=== PATIENT | female | born 1960 | race Caucasian/White ===

== ENCOUNTER → 2017-10-12 | Outpatient (CLI) | payer OTHER ==
[~2017-10-12] MED LIST: REGADENOSON 0.4 MG/5 ML DISP.SYRIN. IV ONE
--- NOTE | 2017-10-12 12:11 | PCVCIMAG ---
APPROVED REPORT Exam: Nuclear Stress Test Indication: Chest pain Patient Location: Out-Patient Stress Nurse: Francia Juarez RN, Luz Marina Mireles RN RI Tech:Bisi Fuenteshbun [facility] Ht: 5 ft 8 in Wt: 215 lbs BSA: 2.11 m2 HR: 100 bpm BP: 134/73 mmHg BMI: 32.6 Rhythm: SR Medical History Medical History: HTN, Diabetic Noninsulin, Current Smoker. Age Allergies: No known drug allergies Pretest Chest Pain Characteristics: No chest pain NM EXAM: Myocardial Perfusion REST/STRESS Imaging Protocol: Rest Tc-99m/Stress Tc-99m 1 day Resting Data Rest SPECT myocardial perfusion imaging was performed in supine position 45 minutes following the intravenous injection of 10.7 mCi of Tc-99m Sestamibi. Time of rest injection: 08 Date: 10/12/2017 Administration Route: IV Administration Site: Right Hand Pharmacologic Stress Pharmacologic stress test was performed by injecting Regadenoson 0.4 mg IV push followed by the intravenous injection of 34 mCi of Tc-99m Sestamibi. Time of stress injection: 1015 Date: 10/12/2017 Administration Route: IV Administration Site: Right Hand Gated Stress SPECT was performed 45 minutes after stress injection. The images were gated to evaluate regional wall motion and calculate left ventricular ejection fraction. Study Data Post stress, the left ventricular ejection was 72%.. SSS: 6 SRS: 5 SDS: 2 TID = 0.73. Perfusion There is a large area of moderately reduced uptake in the entire segment of the inferior wall which is seen on the stress images as well as the resting images. This area thickens and moves normally and is most consistent with attenuation artifact. Wall Motion Normal left ventricular wall motion. Nuclear Conclusion 1. LOW RISK STUDY Interpreted by: Krunal Sánchez MD Electronically Approved: 10/12/2017 12:09:53 Stress Test Details Stress Test: Pharmacologic stress was paired with low level exercise. Reason for pharmacologic stress test: physical limitation. HR Resting HR: 100 bpmMax Heart Rate (APMHR): 161 bpm Max HR Achieved: 126 bpmTarget HR (85% APMHR): 136 bpm % of APMHR: 78 Recovery HR: 102 bpm BP Resting BP: 134/73 mmHg Max BP: 134/74 mmHg ECG Resting ECG: Sinus Rhythm Stress ECG: Sinus Rhythm Recovery ECG: Sinus Rhythm Clinical Reason for Termination: Completed protocol Stress Symptoms: Dyspnea, Light-headed Exercise duration: 4 min 00 sec Exercise capacity: 1.6 METs Symptoms resolved during recovery. Stress ECG Conclusion 1. ADEQUATE RESPONSE TO IV LEXISCAN 2. INADEQUATE HEART RATE RESPONSE FOR ECG DIAGNOSIS <Conclusion> 1. ADEQUATE RESPONSE TO IV LEXISCAN 2. INADEQUATE HEART RATE RESPONSE FOR ECG DIAGNOSIS
--- NOTE | 2017-10-12 12:14 | PCVCIMAG ---
APPROVED REPORT Study performed: 10/12/2017 07:52:35 EXAM: Comprehensive 2D, Doppler, and color-flow Echocardiogram Patient Location: Echo lab Status: routine BSA: 2.11 HR: 76 bpmBP: 124/78 mmHg Rhythm: NSR Other Information Study Quality: Adequate Risk Factors: Cardiac Risk Factors: HTN Indications Chest Pain 2D Dimensions LVEF(%): 46.72 (>50%) IVSd: 10.32 (7-11mm) LVDd: 47.34 mm PWd: 10.17 (7-11mm) LVDs: 36.28 (25-40mm) Left Atrium: 43.38 (27-40mm) Aortic Root: 33.45 mm LV Single Plane 4CH: 66.42 % LV Single Plane 2CH: 71.32 %Saavedra's LVEF: 68.87 % Biplane EF: 70.9 % Volumes Left Atrial Volume (Systole) Single Plane 4CH: 52.99 mLSingle Plane 2CH: 44.46 mL LA ESV Index: 23.00 mL/m2 Aortic Valve AoV Peak Emerson.: 1.50 m/s AO Peak Gr.: 9.05 mmHgLVOT Max P.35 mmHg LVOT Max V: 1.04 m/s Mitral Valve E/A Ratio: 0.8 MV Decel. Time: 321.80 ms MV E Max Emerson.: 0.56 m/s MV A Emerson.: 0.66 m/s IVRT: 103.81 ms Pulmonary Valve PV Peak Emerson.: 0.78 m/sPV Peak Gr.: 2.43 mmHg Pulmonary Vein P Vein S: 0.32 m/sP Vein A: 0.29 m/s P Vein D: 0.47 m/sP Vein A Dur.: 107.3 msec P Vein S/D Ratio: 0.68 Tricuspid Valve TR Peak Emerson.: 2.22 m/s TR Peak Gr.: 19.76 mmHg Left Ventricle The left ventricle is normal size. There is normal LV segmental wall motion. There is normal left ventricular wall thickness. Left ventricular systolic function is normal. The left ventricular ejection fraction is within the normal range. LVEF is 65%. Grade I - abnormal relaxation pattern. Right Ventricle The right ventricle is normal size. The right ventricular systolic function is normal. Atria The left atrium size is normal. The right atrium size is normal. Aortic Valve The aortic valve is normal in structure. No aortic regurgitation is present. There is no aortic valvular stenosis. Mitral Valve The mitral valve is normal in structure. There is no mitral valve regurgitation noted. No evidence of mitral valve stenosis. Tricuspid Valve The tricuspid valve is normal in structure. Trace tricuspid regurgitation with PAP of 27 mmHg. Pulmonic Valve The pulmonary valve is normal in structure. There is no pulmonic valvular regurgitation. Great Vessels The aortic root is normal in size. IVC is normal in size and collapses with >50% inspiration Pericardium There is no pericardial effusion. <Conclusion> The left ventricle is normal size. LVEF is 65%. The aortic valve is normal in structure. The mitral valve is normal in structure. The tricuspid valve is normal in structure. Trace tricuspid regurgitation with PAP of 27 mmHg. The pulmonary valve is normal in structure.
== END | disposition home or self-care (01) ==
LOC: PCVCIMAG 07:55
PROVIDERS: ATTEND Internal Medicine
DX: R07.9 Chest pain, unspecified (principal); I10 Essential (primary) hypertension; E11.9 Type 2 diabetes mellitus without complications; E78.5 Hyperlipidemia, unspecified; F17.200 Nicotine dependence, unspecified, uncomplicated
CPT/HCPCS: 78452; 93017; 93306; A9500; J2785